=== PATIENT | female | born 1985 | race Asian ===

== ENCOUNTER 2021-08-20 07:47 | Inpatient (IN) ==
[2021-08-20] MEDS ORDERED: OXYTOCIN 30 UNITS/500 ML BAG IV PRN ×2 (08:56)
--- NOTE | 2021-08-20 09:11 | History & Physical Report ---
Date of Service August 20, 2021 Assessment & Plan (1) Encounter for supervision of normal in multigravida, antepartum: Plan: Admit to L&D. EFM/toco. Labs. IV fluids. Will check glucose on admission and also hourly when in active labor. Admission and Anticipated Discharge Date Admission Date: August 20, 2021 History of Present Illness Chief Complaint: IOL Primary Care Provider: NO PCP 35yo @ 39 08/22, here for IOL for gestational diabetes. GDM *Begin monthly AC Us's @24wks AC is 97th percentile at 37 weeks not on insulin currently but twice weekly nonstress test starting at 37 weeks Induction 08/20/21 IVF no ICSI * Echo -WNL (07/09/21 @ [facility] [place])--nl akh *Growth US Q4wks @28wks *Weekly NSTs @36wks *Weekly INESSA's @36wks-- not icsi Moderna COVID vaccines *July 2020 *August * no booster Right axilla lump *breast us scheduled on 07/03/21 *4-6 week follow up Flu shot given 06/11/21 SB Allergies Allergy/AdvReac Type Severity Reaction Status Date / Time No Known Allergies Allergy Verified 08/19/21 14:29 Home Medications Medication Instructions Recorded Confirmed Type acetone (urine) test (Ketone Urine #50 ea 06/24/21 08/19/21 Rx Test) blood sugar diagnostic (OneTouch #150 ea 06/24/21 08/19/21 Rx Verio test strips) lancets 33 gauge (OneTouch Delica #150 ea 06/24/21 08/19/21 Rx Plus Lancet) ferrous sulfate 325 mg (65 mg 325 mg PO DAILY 08/20/21 08/20/21 History iron) tablet (Iron (ferrous sulfate)) prenat.vits,yuridia,[id number] 1 tab PO DAILY 08/20/21 08/20/21 History Patient History Medical History Ectopic , tubal History of in vitro fertilization History of measles, mumps, rubella and varicella virus vaccine Surgical History Status post hysteroscopy Tubal ectopic Family History Grandfather (Maternal) Diabetes Grandfather (Paternal) Diabetes Denies family history of Ovarian cancer Prostate cancer Heart disease Breast cancer Lung cancer Colorectal cancer Hypertension Social History Smoking Status: Never smoker Hx Alcohol Use: No Hx Substance Use: No Preferred Language: Togolese Communication Ability: Effective Baby Doctor Required: No Beliefs That Will Affect Care: None marital status: marital status details: Sergio Moreno (38) [phone] Current Living Situation: Spouse Current Living Situation Comment: FOB and child. no pets current occupational status: employed current occupation: [employer] Other Information That Helps Us Care for You: No Feels Safe at Home: Yes Safety Concerns: Feels Safe At This Time Assistive Devices: None Review of Systems All systems reviewed & are unremarkable except as noted in HPI & below Physical Exam Physical Exam: Cervix 3-4/80/-2 Constitutional: WD/WN, vitals as above Respiratory: normal respiratory effort, lungs clear to auscultation no respiratory distress Cardiovascular: Rate/Rhythm: regular rate and regular rhythm Gastrointestinal (Abdomen): Inspection/Auscultation: abdomen normal to inspection Percussion/Palpation: abdomen soft; abdomen nontender Gravid. No s/s chorio or abruption. Skin: no rashes, warm and dry Psychiatric: A+Ox3, euthymic affect Monitoring External Monitor FHT Cat 1 Tocodynamometer Rare ctx Coding Level of Care Code None Diagnoses Encounter for supervision of normal in multigravida, antepartum Z34.80
[2021-08-20 09:18] LABS: Hematocrit (blood only) 37.2 % (37-47); Hemoglobin 12.5 g/dL (12.0-16.0); Mean Corpuscular Hemoglobin 29.8 pg (25-34); Mean Corpuscular Hgb Conc 33.6 g/dL (32-36); Mean Corpuscular Volume 88.8 fL (80-100); Mean Platelet Volume 10.7 fL (7.4-10.4); Platelet Count 142 K/uL (130-400); RDW Coefficient of Variation 15.3 % (11.5-14.5); RDW Standard Deviation 49.2 fL (36.4-46.3); Red Blood Count 4.19 M/uL (4.2-5.4); White Blood Count 9.73 K/uL (4.8-10.8)
[2021-08-20] MEDS: LACTATED RINGER'S 1,000 ML IV PRN ×2 (10:00→17:37)
--- NOTE | 2021-08-20 14:47 | Labor Progress Brief Note ---
Date of Service August 20, 2021 Subjective Feeling ctx, does not yet desire epidural. FHT Cat 1 toco Q 2-4 SVE 5-6/80/-1 Continue labor. Let us know when she desires epidural. Assessment & Plan Admission and Anticipated Discharge Date Admission Date: August 20, 2021 Results & Data ([facility]) Vital Signs (Past 12 Hours) Vital Signs Temp Pulse Resp BP 08/20/21 14:10 85 108/57 L 08/20/21 12:33 36.5 C 88 20 108/60 08/20/21 07:45 36.5 C 20 Coding Level of Care Code None
[2021-08-20] MEDS ORDERED: ePHEDrine sulfate 50 MG/ML AMP ONE (19:30)
[2021-08-20] MEDS ORDERED: fentaNYL citrate 100 MCG/2 ML VIAL ONE (19:30)
[2021-08-20] MEDS ORDERED: BUPIVACAINE 0.25% 30 ML VIAL ONE (19:31)
[2021-08-20] MEDS ORDERED: SODIUM CHLORIDE 0.9% INJ 10 ML VIAL ONE (19:31)
[2021-08-20] MEDS ORDERED: fentaNYL 2MCG/ML ROPIVACAINE 1.25MG/ML 100 ML BAG EPI ONE (19:31)
--- NOTE | 2021-08-20 20:04 | Anesthesiology Consultation ---
Date of Service August 20, 2021 Assessment & Plan Chart Review Chart Review: Acceptable Risk for Labor Epidural Consults Requested none History Height/Weight Height: 5 ft 6 in Weight: 78.018 kg Allergies Allergy/AdvReac Type Severity Reaction Status Date / Time No Known Allergies Allergy Verified 08/19/21 14:29 Medications Home Medications Medication Instructions Recorded Confirmed Last Taken acetone (urine) test (Ketone Urine #50 ea 06/24/21 08/19/21 Unknown Test) blood sugar diagnostic (OneTouch #150 ea 06/24/21 08/19/21 Unknown Verio test strips) lancets 33 gauge (OneTouch Delica #150 ea 06/24/21 08/19/21 Unknown Plus Lancet) ferrous sulfate 325 mg (65 mg 325 mg PO DAILY 08/20/21 08/20/21 08/18/21 21:00 iron) tablet (Iron (ferrous sulfate)) prenat.vits,yuridia,[id number] 1 tab PO DAILY 08/20/21 08/20/21 08/18/21 21:00 Active Medications Generic Name Dose Route Start Last Admin Trade Name Freq PRN Reason Stop Dose Admin Oxytocin 30 units in 500 mls @ 21 mls/hr 08/20/21 08:56 08/20/21 18:59 Pitocin IV 08/22/21 08:55 1.26 units/hr .[id number] PRN 21 mls/hr Labor Induction/Augmentation Titration Protocol 1.26 UNITS/HR Lactated Ringer's 1,000 mls @ 125 mls/hr 08/20/21 08:56 08/20/21 19:45 Lr IV 08/22/21 08:55 125 mls/hr .Q8H PRN Infusion L&D Protocol Protocol Past Medical History Medical History Ectopic , tubal History of in vitro fertilization History of measles, mumps, rubella and varicella virus vaccine Past Family History Family History Grandfather (Maternal) Diabetes Grandfather (Paternal) Diabetes Denies family history of Ovarian cancer Prostate cancer Heart disease Breast cancer Lung cancer Colorectal cancer Hypertension Past Surgical History Surgical History Status post hysteroscopy Tubal ectopic Social History Smoking Status: Never smoker Hx Alcohol Use: No Hx Substance Use: No substance use type: does not use Physical Exam Vital Signs Last Vital Signs Temp 37.0 C 08/20/21 20:00 Pulse 93 H 08/20/21 20:01 Resp 18 08/20/21 20:00 BP 118/66 08/20/21 20:01 Testing Laboratory Results 08/20/21 09:09 08/20/21 09:09 08/20/21 08/20/21 08/20/21 19:38 18:32 17:35 POC Glucose 75 84 70 08/20/21 08/20/21 08/20/21 16:34 15:33 14:39 POC Glucose 73 77 108 H 08/20/21 10:43 POC Glucose 96
[2021-08-20] MEDS ORDERED: NALOXONE HCL 0.4 MG/1 ML VIAL/CARP IV PRN (20:07)
[2021-08-20] MEDS ORDERED: diphenhydrAMINE 50 MG/ML VIAL IV PRN (20:07)
[2021-08-20] MEDS ORDERED: fentaNYL 2MCG/ML ROPIVACAINE 1.25MG/ML 100 ML BAG EPI PRN (20:07)
[2021-08-20] MEDS ORDERED: NALOXONE HCL 1 MG in SODIUM CHLORIDE 0.9% 1000ML 1,000 ML IV PRN (20:07)
[2021-08-20] MEDS ORDERED: ePHEDrine sulfate 50 MG/ML AMP IV PRN (20:07)
[2021-08-20] MEDS ORDERED: NALBUPHINE HCL INJ 10 MG/ML AMP IV PRN (20:07)
--- NOTE | 2021-08-20 22:34 | Labor Progress Brief Note ---
Date of Service August 20, 2021 Subjective Comfortable with epidural. FHT Cat 1 [place] Q 2-3 SROM clear fluid. SVE 6/100/-1 Continue labor. Assessment & Plan Admission and Anticipated Discharge Date Admission Date: August 20, 2021 Results & Data ([facility]) Vital Signs (Past 12 Hours) Vital Signs Temp Pulse Resp BP Pulse Ox 08/20/21 22:32 74 118/70 08/20/21 22:16 76 103/58 L 08/20/21 22:02 78 104/55 L 08/20/21 21:45 80 101/57 L 08/20/21 21:41 77 94 08/20/21 21:30 86 18 107/57 L 08/20/21 21:24 86 94 08/20/21 21:16 84 103/57 L 08/20/21 21:01 88 111/65 08/20/21 21:00 18 08/20/21 20:46 75 103/56 L 08/20/21 20:30 85 18 109/58 L 08/20/21 20:26 86 110/58 L 08/20/21 20:22 93 H 107/58 L 08/20/21 20:17 91 H 116/62 08/20/21 20:11 84 105/57 L 08/20/21 20:10 18 08/20/21 20:06 96 H 113/58 L 08/20/21 20:05 18 08/20/21 20:01 93 H 118/66 08/20/21 20:00 37.0 C 18 08/20/21 19:59 91 H 117/70 08/20/21 19:57 76 117/63 08/20/21 19:55 74 20 118/64 08/20/21 19:53 68 128/69 08/20/21 19:51 20 08/20/21 19:02 82 113/64 08/20/21 18:59 37.1 C 18 08/20/21 18:31 69 106/63 08/20/21 17:34 85 115/62 08/20/21 16:32 93 H 121/56 L 08/20/21 15:34 83 111/65 08/20/21 15:00 36.7 C 80 20 119/64 08/20/21 14:10 85 108/57 L 08/20/21 12:33 36.5 C 88 20 108/60 Coding Level of Care Code None
[2021-08-21] MEDS: LACTATED RINGER'S 1,000 ML IV PRN (00:01)
[2021-08-21] MEDS ORDERED: SODIUM CHLORIDE 0.9% 250 ML IV PRN (01:42)
[2021-08-21] MEDS ORDERED: ONDANSETRON INJ 2 MG/ML 2 ML VIAL ONE (01:51)
[2021-08-21] MEDS ORDERED: ONDANSETRON INJ 2 MG/ML 2 ML VIAL IV SCH (02:00)
[2021-08-21 02:06] LABS: Hematocrit (blood only) 35.9 % (37-47); Hemoglobin 12.5 g/dL (12.0-16.0); Mean Corpuscular Hemoglobin 30.6 pg (25-34); Mean Platelet Volume 10.4 fL (7.4-10.4); Platelet Count 133 K/uL (130-400); RDW Coefficient of Variation 15.2 % (11.5-14.5); Red Blood Count 4.08 M/uL (4.2-5.4); White Blood Count 10.51 K/uL (4.8-10.8)
[2021-08-21 02:07] LABS: Mean Corpuscular Hgb Conc 34.8 g/dL (32-36)
--- NOTE | 2021-08-21 02:10 | Delivery Summary ---
Vaginal Delivery Summary Date of Service August 21, 2021 Vaginal Delivery Summary and 2nd Degree LAC Vaginal Delivery Summary: Pre-delivery diagnoses: 35yo @ 39 5/7, IOL, gestational diabetes, IVF conception Post-delivery diagnoses: same, hemorrhage Procedure: spontaneous vaginal delivery with placement of Bakri balloon Surgeon: Opal Blankenship DO Complications: none Findings: Viable male . Apgars: 8/9. Weight 9#0. Estimated blood loss: 600ml Description of delivery: The patient progressed to complete with epidural anesthesia. She then began to push. She spontaneously vaginally delivered a viable from the cephalic presentation. The head delivered in SANDY position. The anterior shoulder delivered, followed by the posterior shoulder, followed by the body. No nuchal cord noted. The baby was placed on mother's abdomen and a spontaneous cry was heard. The cord was doubly clamped and cut. Cord blood was obtained. The placenta was delivered spontaneously intact with a 3-vessel cord. The uterus and vagina were swept of clots and debris. IV pitocin was given. The fundus was firm, however the lower uterine segment was atonic and actively bleeding. Uterine massage was performed and the bladder was drained. The cervix, vagina, and perineum were inspected with retractors - no cervical or deep vaginal lacerations were noted, and a 2nd degree perineal laceration noted - this was hemostatic, as it was likely along the prior scar line. 1 dose of methergine was given, 1 dose of hemabate, 1g TXA. I placed a Bakri balloon in the lower uterine segment and filled to 500cc sterile water. This helped significantly, and the patient became hemostatic. Lab was called to bedside and francisco blood for CBC, CMP, coag panel. Perineal lac repaired in standard fashion with 3-0 vicryl. Cytotec 1000cc placed per rectum. Farias placed in bladder. At this point, excellent hemostasis. At the time I left the room, mother was hemostatic. There was approx 50cc blood in the Bakri tubing total (this is accounted for in the total 600cc est blood loss), did not appear to be increasing. Farias draining adequately with pink- tinged urine, presumably from catheter trauma. No active bleeding from vagina. Patient awake and talking, I debriefed her and at bedside. Baby in room with parents. Will plan to continue pitocin IV, will give Ancef d/t Bakri balloon. Continue to monitor closely and recheck labs in AM. The mother and baby are recovering in stable condition in the room. Sponge, needle and instrument counts were correct x 2. [facility] Delivery Charge Vaginal Delivery Codes: 21101 global code for the antepartum, delivery, and post- Delivery Type Details: and 2nd Degree LAC
[2021-08-21 02:24] LABS: Fibrinogen 437 mg/dl (184-400); INR 0.9 (0.9-1.1); Partial Thromboplastin Time 27.6 Seconds (21.0-31.0)
[2021-08-21] MEDS ORDERED: ACETAMINOPHEN 325 MG TAB PO PRN (02:30)
[2021-08-21] MEDS ORDERED: miSOPROStoL 200 MCG TAB PR ONE (02:30)
[2021-08-21] MEDS ORDERED: bisacodyL 10 MG SUPP PR PRN (02:30)
[2021-08-21] MEDS ORDERED: TRANEXAMIC ACID / 0.7% NACL 1,000 MG/100 ML BAG IV ONE (02:30)
[2021-08-21] MEDS ORDERED: IBUPROFEN 600 MG TAB PO PRN (02:30)
[2021-08-21] MEDS ORDERED: BENZOCAINE 20% AER SPR 82.5 GM CAN EXT PRN (02:30)
[2021-08-21] MEDS ORDERED: oxyCODONE/ACETAMINOPHEN 5mg/325mg TAB PO PRN (02:30)
[2021-08-21] MEDS ORDERED: HYDROCORTISONE ACETATE 25 MG SUPP PR PRN (02:30)
[2021-08-21] MEDS ORDERED: ceFAZolin 1000MG 1,000 MG/7.5 ML SYR IV SCH (02:30)
[2021-08-21] MEDS ORDERED: METHYLERGONOVINE MALEATE 0.2 MG/ML AMP IM ONE (02:30)
[2021-08-21] MEDS ORDERED: DIPHTHERIA/TETANUS/PERTUSSIS 0.5 ML SYR/VIAL IM ONE (02:30)
[2021-08-21] MEDS ORDERED: CARBOPROST TROMETHAMINE 250 MCG/ML AMPUL IM ONE (02:30)
[2021-08-21] MEDS ORDERED: OXYTOCIN 30 UNITS/500 ML BAG IV PRN (02:30)
[2021-08-21 02:32] LABS: BUN Creatinine Ratio 14.5 (10-20); Bilirubin,Total 0.5 mg/dl (0.2-1.0); Calcium 8.3 mg/dl (8.5-10.1); Creatinine Clr Calc Pharmacy 134.8 ml/min; Est GFR (African American) 136.4 ml/min; Est GFR (Non-African American) 117.6 ml/min; Globulin 2.9 gm/dl (2.5-4.0); Potassium 3.6 mmol/L (3.5-5.1); Total Protein 5.9 gm/dl (6.0-8.3)
[2021-08-21] MEDS ORDERED: TRANEXAMIC ACID / 0.7% NACL 1000MG/100ML BAG IV ONE (02:32)
[2021-08-21] MEDS ORDERED: miSOPROStoL 200 MCG TAB ONE (02:32)
[2021-08-21] MEDS ORDERED: CARBOPROST TROMETHAMINE 250 MCG/ML AMPUL ONE (02:32)
[2021-08-21] MEDS ORDERED: METHYLERGONOVINE MALEATE 0.2 MG/ML AMP ONE (02:33)
[2021-08-21] MEDS: OXYTOCIN 30 UNITS in LACTATED RINGER'S 1,000 ML IV SCH ×2 (02:46→10:42)
[2021-08-21 06:03] LABS: Hematocrit (blood only) 37.4 % (37-47); Hemoglobin 12.7 g/dL (12.0-16.0); Mean Corpuscular Volume 88.4 fL (80-100); Mean Platelet Volume 10.8 fL (7.4-10.4); Platelet Count 148 K/uL (130-400); RDW Standard Deviation 48.5 fL (36.4-46.3); Red Blood Count 4.23 M/uL (4.2-5.4); White Blood Count 13.13 K/uL (4.8-10.8)
[2021-08-21] MEDS: DOCUSATE SODIUM 100 MG CAP PO SCH ×2 (08:09→22:00)
[2021-08-21] MEDS: PRENATAL VITAMIN 1 TAB PO SCH (08:09)
--- NOTE | 2021-08-21 08:23 | Obstetrical Progress Note ---
Date of Service August 21, 2021 Assessment & Plan Admission and Anticipated Discharge Date Admission Date: August 20, 2021 Subjective AM rounds - doing well. Hungry, awake, talking. Minimal lochia from vagina. Total Bakri blood loss: 50 + 20 + 20ml. Farias catheter with good urine output. Vitals stable. Fundus firm. Labs stable. + Will plan to continue Bakri balloon for 12-24h after insertion, continue a ntibiotics. Will change to regular OB diet. Results & Data ([facility]) Vital Signs (Past 12 Hours) Vital Signs Temp Pulse Resp BP Pulse Ox 08/21/21 08:19 96 H 93 08/21/21 08:14 100 H 93 08/21/21 08:09 101 H 93 08/21/21 08:04 95 H 93 08/21/21 08:02 92 H 119/62 08/21/21 07:59 86 93 08/21/21 07:54 87 93 08/21/21 07:49 82 93 08/21/21 07:44 81 93 08/21/21 07:39 89 93 08/21/21 07:34 81 93 08/21/21 07:29 88 94 08/21/21 07:24 91 H 95 08/21/21 07:19 97 H 95 08/21/21 07:14 98 H 93 08/21/21 07:09 92 H 94 08/21/21 07:04 101 H 94 08/21/21 07:02 100 H 116/66 08/21/21 06:59 91 H 93 08/21/21 06:54 105 H 94 08/21/21 06:49 98 H 93 08/21/21 06:44 96 H 95 08/21/21 06:39 98 H 93 08/21/21 06:34 99 H 94 08/21/21 06:29 108 H 94 08/21/21 06:24 94 H 94 08/21/21 06:19 93 H 92 08/21/21 06:14 100 H 93 08/21/21 06:09 91 H 93 08/21/21 06:04 89 92 08/21/21 06:02 86 113/61 08/21/21 06:00 86 18 94 08/21/21 05:59 101 H 94 08/21/21 05:54 86 94 08/21/21 05:49 91 H 94 08/21/21 05:44 102 H 93 08/21/21 05:39 92 H 93 08/21/21 05:34 85 91 08/21/21 05:29 89 92 08/21/21 05:24 88 94 08/21/21 05:19 97 H 93 08/21/21 05:14 92 H 92 08/21/21 05:09 89 92 08/21/21 05:04 92 H 92 08/21/21 05:02 96 H 151/62 H 08/21/21 05:00 89 18 92 08/21/21 04:59 91 H 94 08/21/21 04:54 94 H 93 08/21/21 04:49 94 H 94 08/21/21 04:44 90 93 08/21/21 04:39 86 92 08/21/21 04:34 91 H 93 08/21/21 04:29 94 H 95 08/21/21 04:24 92 H 92 08/21/21 04:19 97 H 93 08/21/21 04:14 95 H 93 08/21/21 04:09 89 91 08/21/21 04:04 88 92 08/21/21 04:00 37.2 C 95 H 20 114/69 93 08/21/21 03:59 95 H 94 08/21/21 03:54 85 92 08/21/21 03:49 81 91 08/21/21 03:45 82 121/69 08/21/21 03:31 86 115/60 08/21/21 03:15 85 122/72 08/21/21 03:00 81 20 125/77 08/21/21 02:45 81 20 125/77 08/21/21 02:31 85 123/78 08/21/21 02:30 85 18 123/78 08/21/21 02:21 95 H 139/78 08/21/21 02:15 85 20 123/78 08/21/21 02:09 75 88 L 08/21/21 02:01 90 125/72 08/21/21 02:00 37.3 C 75 18 88 L 08/21/21 01:46 115 H 134/73 08/21/21 01:31 84 108/69 08/21/21 01:16 106 H 126/76 04/06/22 01:03 95 H 126/61 04/06/22 01:00 18 08/21/21 00:47 85 121/59 L 08/21/21 00:31 82 122/70 08/21/21 00:30 18 08/21/21 00:16 69 122/68 08/21/21 00:01 81 123/70 08/21/21 00:00 37.1 C 18 08/20/21 23:46 71 117/67 08/20/21 23:31 80 113/68 08/20/21 23:30 18 08/20/21 23:17 78 126/68 08/20/21 23:01 71 117/61 08/20/21 23:00 18 08/20/21 22:46 93 H 110/67 08/20/21 22:32 74 118/70 08/20/21 22:30 37.1 C 18 08/20/21 22:16 76 103/58 L 08/20/21 22:02 78 104/55 L 08/20/21 22:00 18 08/20/21 21:45 80 101/57 L 08/20/21 21:41 77 94 08/20/21 21:30 86 18 107/57 L 08/20/21 21:24 86 94 08/20/21 21:16 84 103/57 L 08/20/21 21:01 88 111/65 08/20/21 21:00 18 08/20/21 20:46 75 103/56 L 08/20/21 20:30 85 18 109/58 L 08/20/21 20:26 86 110/58 L 08/20/21 20:22 93 H 107/58 L PG Care Time/CCT Total # of Minutes Spent Total Time Spent with Patient: Total time spent is greater than 50% in coordination of care (as documented) at patient's floor/unit and/or counseling patient: Coding Level of Care Code None
[2021-08-21] MEDS: CLINDAMYCIN 300 MG in DEXTROSE 5% 50 ML IV SCH ×2 (08:48→16:05)
--- NOTE | 2021-08-21 09:23 | Anesthesiology Progress Note ---
Date of Service August 21, 2021 Anesthesia Post Procedure Vital Signs Vital Signs: Temp Pulse Resp BP Pulse Ox 08/21/21 09:19 93 H 95 08/21/21 09:14 87 93 08/21/21 09:09 97 H 94 08/21/21 09:04 102 H 93 08/21/21 09:02 107 H 126/65 08/21/21 08:59 118 H 94 08/21/21 08:54 101 H 93 08/21/21 08:49 106 H 94 08/21/21 08:44 106 H 94 08/21/21 08:39 103 H 94 08/21/21 08:34 109 H 94 08/21/21 08:29 114 H 95 08/21/21 08:24 93 H 93 08/21/21 08:19 96 H 93 08/21/21 08:14 100 H 93 08/21/21 08:09 101 H 93 08/21/21 08:04 95 H 93 08/21/21 08:02 92 H 119/62 08/21/21 07:59 86 93 08/21/21 07:54 87 93 08/21/21 07:49 82 93 08/21/21 07:44 81 93 08/21/21 07:39 89 93 08/21/21 07:34 81 93 08/21/21 07:29 88 94 08/21/21 07:24 91 H 95 08/21/21 07:19 97 H 95 08/21/21 07:14 98 H 93 08/21/21 07:09 92 H 94 08/21/21 07:04 101 H 94 08/21/21 07:02 100 H 116/66 08/21/21 06:59 91 H 93 08/21/21 06:54 105 H 94 08/21/21 06:49 98 H 93 08/21/21 06:44 96 H 95 08/21/21 06:39 98 H 93 08/21/21 06:34 99 H 94 08/21/21 06:29 108 H 94 08/21/21 06:24 94 H 94 08/21/21 06:19 93 H 92 08/21/21 06:14 100 H 93 08/21/21 06:09 91 H 93 08/21/21 06:04 89 92 08/21/21 06:02 86 113/61 08/21/21 06:00 86 18 94 08/21/21 05:59 101 H 94 08/21/21 05:54 86 94 08/21/21 05:49 91 H 94 08/21/21 05:44 102 H 93 08/21/21 05:39 92 H 93 08/21/21 05:34 85 91 08/21/21 05:29 89 92 08/21/21 05:24 88 94 08/21/21 05:19 97 H 93 08/21/21 05:14 92 H 92 08/21/21 05:09 89 92 08/21/21 05:04 92 H 92 08/21/21 05:02 96 H 151/62 H 08/21/21 05:00 89 18 92 08/21/21 04:59 91 H 94 08/21/21 04:54 94 H 93 08/21/21 04:49 94 H 94 08/21/21 04:44 90 93 08/21/21 04:39 86 92 08/21/21 04:34 91 H 93 08/21/21 04:29 94 H 95 08/21/21 04:24 92 H 92 08/21/21 04:19 97 H 93 08/21/21 04:14 95 H 93 08/21/21 04:09 89 91 08/21/21 04:04 88 92 08/21/21 04:00 37.2 C 95 H 20 114/69 93 08/21/21 03:59 95 H 94 08/21/21 03:54 85 92 08/21/21 03:49 81 91 08/21/21 03:45 82 121/69 08/21/21 03:31 86 115/60 08/21/21 03:15 85 122/72 08/21/21 03:00 81 20 125/77 08/21/21 02:45 81 20 125/77 08/21/21 02:31 85 123/78 08/21/21 02:30 85 18 123/78 08/21/21 02:21 95 H 139/78 08/21/21 02:15 85 20 123/78 08/21/21 02:09 75 88 L 08/21/21 02:01 90 125/72 08/21/21 02:00 37.3 C 75 18 88 L 08/21/21 01:46 115 H 134/73 08/21/21 01:31 84 108/69 08/21/21 01:16 106 H 126/76 08/21/21 01:03 95 H 126/61 08/21/21 01:00 18 08/21/21 00:47 85 121/59 L 08/21/21 00:31 82 122/70 08/21/21 00:30 18 08/21/21 00:16 69 122/68 08/21/21 00:01 81 123/70 08/21/21 00:00 37.1 C 18 08/20/21 23:46 71 117/67 08/20/21 23:31 80 113/68 08/20/21 23:30 18 08/20/21 23:17 78 126/68 08/20/21 23:01 71 117/61 08/20/21 23:00 18 08/20/21 22:46 93 H 110/67 08/20/21 22:32 74 118/70 08/20/21 22:30 37.1 C 18 08/20/21 22:16 76 103/58 L 08/20/21 22:02 78 104/55 L 08/20/21 22:00 18 08/20/21 21:45 80 101/57 L 08/20/21 21:41 77 94 08/20/21 21:30 86 18 107/57 L 08/20/21 21:24 86 94 08/20/21 21:16 84 103/57 L 08/20/21 21:01 88 111/65 08/20/21 21:00 18 08/20/21 20:46 75 103/56 L 08/20/21 20:30 85 18 109/58 L 08/20/21 20:26 86 110/58 L 08/20/21 20:22 93 H 107/58 L 08/20/21 20:17 91 H 116/62 08/20/21 20:11 84 105/57 L 08/20/21 20:10 18 08/20/21 20:06 96 H 113/58 L 08/20/21 20:05 18 08/20/21 20:01 93 H 118/66 08/20/21 20:00 37.0 C 18 08/20/21 19:59 91 H 117/70 08/20/21 19:57 76 117/63 08/20/21 19:55 74 20 118/64 08/20/21 19:53 68 128/69 08/20/21 19:51 20 08/20/21 19:02 82 113/64 08/20/21 18:59 37.1 C 18 08/20/21 18:31 69 106/63 08/20/21 17:34 85 115/62 08/20/21 16:32 93 H 121/56 L 08/20/21 15:34 83 111/65 08/20/21 15:00 36.7 C 80 20 119/64 08/20/21 14:10 85 108/57 L 08/20/21 12:33 36.5 C 88 20 108/60 Transfer of Care Handoff Completed per policy Notes Mental Status: alert / awake / arousable and participated in evaluation Patient Amnestic to Procedure: Yes Nausea / Vomiting: adequately controlled Pain: adequately controlled Airway Patency, RR, SpO2: stable & adequate BP & HR: stable & adequate Hydration State: stable & adequate Anesthetic Complications: no major complications apparent and Pt Satisfied with anesthetic care
[2021-08-22 06:39] LABS: Hematocrit (blood only) 33.7 % (37-47); Hemoglobin 11.6 g/dL (12.0-16.0); Mean Corpuscular Hemoglobin 30.4 pg (25-34); Mean Corpuscular Hgb Conc 34.4 g/dL (32-36); Mean Corpuscular Volume 88.2 fL (80-100); Mean Platelet Volume 10.5 fL (7.4-10.4); Platelet Count 146 K/uL (130-400); RDW Coefficient of Variation 15.1 % (11.5-14.5); RDW Standard Deviation 48.6 fL (36.4-46.3); Red Blood Count 3.82 M/uL (4.2-5.4); White Blood Count 10.99 K/uL (4.8-10.8)
--- NOTE | 2021-08-22 07:18 | Obstetrical Progress Note ---
Date of Service August 22, 2021 Assessment & Plan (1) Encounter for care and examination after delivery: Plan: 35 yo PPD 1 s/p at 36 5/7weeks -Continue routine care -Vitals reviewed- HDS, afebrile -AB+, GBS-, Rubella immune -Encourage ambulation, regular diet -Pain control with ibuprofen, acetaminophen PRN -Encourage -Hgb 11.7 -D/C home today -F/u in 6 weeks withOB Admission and Anticipated Discharge Date Admission Date: August 20, 2021 Supervising Physician Co-Signing Physician Notes Resident Physician Supervision Note: I interviewed and examined the patient. Discussed with Dr. Pimentel and agree with findings and plan as documented in the note. Any exceptions or clarifications are listed here: [None] Documented By: Lani Brizuela MD, FACOG Subjective PPD1 s/p . Patient seen and examined at bedside. Reports no acute overnight events. Ambulating and voiding. Passing gas. Regular diet w/o N/V. Lochia moderate. and supplementing with bottle feeds. Pain 2/10. No additional bleeding noted other than normal lochia. Pt had questions regarding GDM. Review of Systems Review of Systems: All systems reviewed & are unremarkable except as noted in HPI & below Physical Exam Physical Exam: General: Alert, oriented, no acute distress Cardiac: Regular rate and rhythm, normal S1, S2. No murmurs appreciated. Respiratory: Clear to auscultation b/l with good air flow entry, symmetric chest rise and fall. No wheezes or crackles. No increased work of breathing or accessory muscle use Abdomen: Soft, nontender, nondistended. Fundus firm and palpable at 2 cm below umbilicus. No guarding or rebound. Skin: No rashes or lesions Extremities: Warm, dry, well-perfused with capillary refill <2s b/l. No lower extremity edema, erythema or swelling. Negative Ajay's sign b/l. Results & Data ([facility]) Vital Signs (Past 12 Hours) Vital Signs Temp Pulse Resp BP Pulse Ox 08/22/21 03:05 36.4 C L 76 16 95/60 L 96 08/21/21 23:10 36.6 C 80 18 98/61 L 97 08/21/21 19:50 36.9 C 85 18 96/53 L 97
[2021-08-22] MEDS ORDERED: COUGH DROP (SUGAR FREE) LOZ 24 LOZ/1 BOX BUCCAL ONE (08:24)
[2021-08-22] MEDS: PRENATAL VITAMIN 1 TAB PO SCH (08:29)
[2021-08-22] MEDS: DOCUSATE SODIUM 100 MG CAP PO SCH (08:30)
[2021-08-22] MEDS ORDERED: bisacodyL 5 MG TABEC PO SCH (20:00)
== END 2021-08-22 15:20 | disposition home or self-care (01) | DRG 768 ==
LOC: 4S1 07:47 → 4E2 08-21 19:30
DX: O72.1 Other immediate postpartum hemorrhage; O70.1 Second degree perineal laceration during delivery; Z37.0 Single live birth; O24.429 Gestational diabetes mellitus in childbirth, unspecified control; Z3A.39 39 weeks gestation of pregnancy